=== PATIENT | female | born 1985 | race Native Hawaiian/Other Pacific Islander ===

== ENCOUNTER 2017-09-21 09:20 | Outpatient (CLI) | payer BC | END 2017-09-21 21:46 | disposition home or self-care (01) | LOC: CT 09:20 | DX: R10.84 Generalized abdominal pain (principal) ==

== ENCOUNTER 2017-12-23 12:47 | Outpatient (CLI) | payer BC | END 2017-12-23 19:48 | disposition home or self-care (01) | LOC: RAD 12:47 | DX: N20.0 Calculus of kidney (principal) ==

== ENCOUNTER 2019-11-15 09:45 | Emergency (ER) | payer BC ==
[~2019-11-15] VITALS: Ht 157.5 cm; Wt 81.6 kg
[2019-11-15 09:45] VITALS: TEMP 98.7
[2019-11-15 10:10] LABS: PLATELET COUNT 263 K/uL (152-353)
[2019-11-15 10:18] LABS: POTASSIUM 4.2 mmol/L (3.6-5.2); SODIUM 136 mmol/L (136-145)
[2019-11-15 10:39] LABS: PARTIAL THROMBOPLASTIN TIME 20.9 SECONDS (24.5-33.6)
[2019-11-15 11:25] VITALS: BP 103/56
== END 2019-11-15 11:40 | disposition home or self-care (01) ==
LOC: ED 09:51
PROVIDERS: Hospitalist
DX: R55 Syncope and collapse (principal); I95.9 Hypotension, unspecified
CPT/HCPCS: 80053; 80307; 80320; 81000; 81025; 82550; 83880; 84443; 84484; 85027; 85610; 85730; 93005; 96360; 99284

== ENCOUNTER 2020-08-04 13:10 | Outpatient (CLI) | payer BC ==
[2020-08-04 13:26] LABS: PLATELET COUNT 276 K/uL (152-353)
[2020-08-04 13:50] LABS: POTASSIUM 3.7 mmol/L (3.6-5.2)
== END 2020-08-04 19:25 | disposition home or self-care (01) ==
LOC: LABW 13:10
PROVIDERS: ATTEND Plastic Surgery
DX: N62 Hypertrophy of breast (principal)
CPT/HCPCS: 36415; 80048; 85027

== ENCOUNTER 2021-05-26 11:31 | Outpatient (CLI) | payer BC | END 2021-05-26 19:03 | disposition home or self-care (01) | LOC: CT 11:31 | PROVIDERS: ATTEND Nurse Practitioner | DX: N20.0 Calculus of kidney (principal) ==

== ENCOUNTER 2021-10-13 08:44 | Outpatient (CLI) | payer BC | END 2021-10-13 19:00 | disposition home or self-care (01) | LOC: RAD 08:44 | PROVIDERS: ATTEND Specialist | DX: N20.0 Calculus of kidney (principal) ==